=== PATIENT | female | born 1955 | race African-American/Black ===

== ENCOUNTER 2024-02-22 16:47 | Inpatient (IN) | payer OTHER ==
[2024-02-22] MEDS ORDERED: methaDONE HCL 10 MG TABLET (FOR DETOX USE ONLY) PO PRN (18:30)
[2024-02-22] MEDS ORDERED: guaiFENesin 600 MG TABLET.ER (FP) PO PRN (18:30)
[2024-02-22] MEDS ORDERED: BENZONATATE 200 MG CAPSULE PO PRN (18:30)
[2024-02-22] MEDS ORDERED: IBUPROFEN 400 MG TABLET (FP) PO PRN (18:30)
[2024-02-22] MEDS ORDERED: BISMUTH SUBSALICYLATE 524 MG/30 ML PO PRN (18:30)
[2024-02-22] MEDS ORDERED: MAG HYDROX/AL HYDROX/SIMETH 30 ML UNIT-DOSE CUP PO PRN (18:30)
[2024-02-22] MEDS ORDERED: MAGNESIUM HYDROX 2400MG/30ML ORAL SUSPENSION 30 ML CUP PO PRN (18:30)
[2024-02-22] MEDS ORDERED: BENZOCAINE/MENTHOL (CHLORASEPTIC ) LOZENGE MM PRN (18:30)
[2024-02-22] MEDS ORDERED: POLYETHYLENE GLYCOL (HEALTHYLAX) 3350 17 GM PACKET PO PRN (18:30)
[2024-02-22] MEDS ORDERED: LOPERAMIDE HCL 2 MG CAPSULE PO PRN (18:30)
[2024-02-22] MEDS ORDERED: DICYCLOMINE HCL 10 MG CAPSULE PO PRN (18:30)
[2024-02-22] MEDS ORDERED: NALOXONE (NARCAN) HCL 4 MG/0.1 ML SPRAY NS PRN (18:30)
[2024-02-22] MEDS ORDERED: methaDONE HCL 10 MG TABLET (FOR DETOX USE ONLY) ONE (19:46)
[2024-02-22] MEDS: methaDONE HCL 10 MG TABLET (FOR DETOX USE ONLY) PO ONE (19:53)
[2024-02-22] MEDS: MELATONIN 5 MG TABLETS PO SCH (23:46)
[2024-02-22] MEDS: THIAMINE 100 MG TABLET PO SCH (23:47)
[2024-02-23] MEDS: IBUPROFEN 600 MG TABLET (FP) PO PRN (04:13)
[2024-02-23] MEDS: BACLOFEN 10 MG TABLET (FP) PO PRN (04:14)
[2024-02-23] MEDS: ACETAMINOPHEN 325 MG TABLET (FP) PO PRN (06:29)
[2024-02-23] MEDS ORDERED: methaDONE HCL 10 MG TABLET (FOR DETOX USE ONLY) PO ONE (10:00)
[2024-02-23] MEDS: NICOTINE 14 MG/24 HOURS TOPICAL PATCH TD SCH (10:05)
[2024-02-23] MEDS: PRENATAL VITAMINS W/ FOLIC ACID TABLET (FP) PO SCH (10:05)
[2024-02-23] MEDS: amLODIPine BESYLATE 5 MG TABLET (FP) PO SCH (10:08)
[2024-02-23] MEDS: TRIMETHOBENZAMIDE HCL 200MG/2ML INJ IM PRN (11:32)
[2024-02-23 11:35] LABS: HEMATOCRIT 42.5 % (32.4-45.2); HEMOGLOBIN 13.5 GM/dL (10.7-15.3); MCH 27.3 pg (25.7-33.7); MCHC 31.9 g/dl (32.0-36.0); MEAN CELL VOLUME 85.7 fl (80-96); MEAN PLT VOLUME 7.7 fl (7.5-11.1); PLATELET COUNT 387 10^3/uL (134-434); RBC 4.95 M/mm3 (3.60-5.2); WHITE BLOOD COUNT 8.9 K/mm3 (4.0-10.0)
[2024-02-23] MEDS: CHLORTHALIDONE 25 MG TABLET PO SCH (13:02)
[2024-02-23 14:14] LABS: POTASSIUM 3.4 mmol/L (3.5-5.1)
[2024-02-23 14:24] LABS: ALBUMIN 4.3 g/dl (3.4-5.0); BLOOD UREA NITROGEN 15.9 mg/dL (7-18); CALCIUM 10.3 mg/dL (8.5-10.1)
[2024-02-23 14:30] LABS: CREATININE 0.8 mg/dL (0.55-1.3)
[2024-02-23 14:31] LABS: BILIRUBIN,TOTAL 0.6 mg/dL (0.2-1); TOT PROT 8.1 g/dl (6.4-8.2)
[2024-02-23] MEDS ORDERED: POTASSIUM CHLORIDE ORAL LIQUID 20 MEQ/15 ML PO ONE (15:02)
[2024-02-23] MEDS: ONDANSETRON *ODT* 4 MG TABLET SL PRN (18:04)
[2024-02-23] MEDS: POTASSIUM CHLORIDE ORAL LIQUID 20 MEQ/15 ML PO ONE (18:50)
[2024-02-23] MEDS: METOPROLOL TARTRATE 50 MG TABLET (FP) PO ONE (19:16)
[2024-02-24] MEDS: methaDONE HCL 10 MG TABLET (FOR DETOX USE ONLY) PO ONE (09:57)
[2024-02-24] MEDS ORDERED: amLODIPine BESYLATE 5 MG TABLET (FP) PO SCH (12:24)
[2024-02-24] MEDS: POTASSIUM CHLORIDE ORAL LIQUID 20 MEQ/15 ML PO ONE ×2 (13:09→17:35)
[2024-02-24] MEDS ORDERED: LOSARTAN POTASSIUM 50 MG TABLET PO ONE (16:27)
[2024-02-24] MEDS: LOSARTAN POTASSIUM 50 MG TABLET PO ONE (17:35)
[2024-02-25] MEDS: methaDONE HCL 10 MG TABLET (FOR DETOX USE ONLY) PO ONE (09:29)
[2024-02-25] MEDS: amLODIPine BESYLATE 5 MG TABLET (FP) PO SCH (09:29)
[2024-02-25 13:15] VITALS: RESP 16
[2024-02-26 13:31] VITALS: BP 129/88; PULSE 90; TEMP 97.9
[2024-02-27] MEDS ORDERED: methaDONE HCL 10 MG TABLET (FOR DETOX USE ONLY) PO ONE (06:00)
[2024-02-27] MEDS ORDERED: NALOXONE (NYS OPIOID OVERDOSE PROGRAM) 4 MG/0.1 ML SPRAY NS SCH (08:00)
== END 2024-02-26 14:31 | disposition home or self-care (01) | DRG 897 ==
LOC: YASAS 16:47 → Y3N 22:20
PROVIDERS: ADMIT Allergy & Immunology; ATTEND Allergy & Immunology
PROC: HZ2ZZZZ Detoxification Services for Substance Abuse Treatment (ICD-10-PCS; principal; 2024-02-22)
DX: F11.23 Opioid dependence with withdrawal (principal); F17.210 Nicotine dependence, cigarettes, uncomplicated; E87.6 Hypokalemia; I10 Essential (primary) hypertension; M06.9 Rheumatoid arthritis, unspecified; R26.89 Other abnormalities of gait and mobility; Z99.89 Dependence on other enabling machines and devices
CPT/HCPCS: 36415; 80053; 80305; 84132; 85027; 86780; 93005; 93010; J0475; Q0162